=== PATIENT | male | born 1970 | race Caucasian/White ===

== ENCOUNTER → 2016-08-24 | Outpatient (CLI) | payer OTHER ==
--- NOTE | 2016-08-24 13:34 | RAD ---
PROCEDURE MR of the right knee HISTORY Chronic medial pain. No known injury. TECHNIQUE Routine multiplanar sequences are obtained. COMPARISON None FINDINGS Degenerative tear of the medial meniscus. No evidence of lateral meniscal tear. The anterior and posterior cruciate ligaments are intact. Medial collateral ligament is intact. Iliotibial band unremarkable. Fibular collateral ligament, biceps femoris tendon and popliteus tendon are intact. Extensor mechanism is intact. Enthesophytes at the upper pole and to lesser extent lower patella. No evidence of osteochondral loose body. Moderate chondromalacia of the medial joint compartment. Severe chondromalacia at the posterior lateral tibial plateau. No bone lesion or acute fracture. No acute soft tissue injury. No significant Tucker cyst. IMPRESSION 1. Medial meniscal tear. 2. Primary osteoarthritis. Electronically signed by: Shemar Nielsen MD (August 24, 2016 13:33:12)
== END | disposition home or self-care (01) ==
LOC: MRI 10:24
PROVIDERS: ATTEND Physician Assistant Medical
DX: M17.11 Unilateral primary osteoarthritis, right knee (principal)
CPT/HCPCS: 73721

== ENCOUNTER 2016-09-28 05:56 | Day surgery (SDC) | payer OTHER ==
[~2016-09-28] VITALS: Ht 180.3 cm; Wt 142.0 kg
[2016-09-28] MEDS ORDERED: fentaNYL PF VIAL 100 MCG/2 ML VIAL IV PRN (07:00)
[2016-09-28] MEDS ORDERED: ONDANSETRON PF 4 MG/2 ML VIAL. IV PRN (07:00)
[2016-09-28] MEDS ORDERED: MORPHINE SULFATE 2 MG/ML DISP.SYRIN. IV PRN (07:00)
[2016-09-28] MEDS ORDERED: LIDOCAINE 1% 1 ML SYRINGE. ID PRN (07:00)
[2016-09-28] MEDS ORDERED: IV RINGERS,LACTATED 1000ML 1,000 ML IV SCH (07:00)
[2016-09-28] MEDS ORDERED: PROCHLORPERAZINE 10 MG/2 ML VIAL. IV PRN (07:00)
[2016-09-28] MEDS ORDERED: BUPIVACAINE MPF 0.5% 30 ML VIAL. ONE (07:08)
[2016-09-28] MEDS ORDERED: MIDAZOLAM HCL/PF 2 MG/2 ML VIAL. ONE (07:13)
[2016-09-28] MEDS ORDERED: fentaNYL PF VIAL 100 MCG/2 ML VIAL ONE (07:13)
[2016-09-28] MEDS ORDERED: LIDOCAINE 2% PF Vial for OR 5 ML VIAL. ONE (07:14)
[2016-09-28] MEDS ORDERED: PROPOFOL 20 ML IV ONE (07:14)
[2016-09-28] MEDS ORDERED: ONDANSETRON PF 4 MG/2 ML VIAL. ONE (07:14)
[2016-09-28] MEDS ORDERED: DEXAMETHASONE SOD PHOS 20 MG/5 ML VIAL. ONE (07:14)
--- NOTE | 2016-09-28 07:27 | DISCH ---
DISCHARGE INSTRUCTIONS Condition on Discharge Condition on Discharge: Stable Activity After Discharge Activity Instructions for Disc: Activity as tolerated Other activity instructions: slow advance of activity as tolerated Weight Bearing Status after Di: Full weight bearing Diet after Discharge Diet after Discharge: Regular Wound Incision Care Wound/Incision Care: Ice to area for comfort, Keep wound elevated, Change dressing Other wound/incision instructi: remove dressing 2 days may then shower Contacting the DR. after DC Call your doctor for: Concerns you may have Follow-Up Follow up with: Kj 10 days LINO MENSAH MD Sep 28, 2016 07:27
[2016-09-28] MEDS ORDERED: HYDR-965 PO (07:30)
[2016-09-28] MEDS: fentaNYL PF VIAL 100 MCG/2 ML VIAL IV PRN ×2 (08:47→08:54)
[2016-09-28] MEDS ORDERED: HYDROcodone/APAP 7.5/325MG 1 TAB TABLET PO PRN (09:00)
[2016-09-28] MEDS: HYDROmorphone 2 MG/ML VIAL IV PRN ×2 (09:03→09:13)
[2016-09-28 09:33] VITALS: BP 133/69
--- NOTE | 2016-09-28 10:17 | OP ---
DATE OF SURGERY: 09/28/2016 PREOPERATIVE DIAGNOSIS: Medial meniscus tear, right knee. POSTOPERATIVE DIAGNOSIS: Medial meniscus tear, right knee. PROCEDURE: Right knee arthroscopy, partial medial meniscectomy. SURGEON: Geoff Underwood M.D. ANESTHESIA: General. ESTIMATED BLOOD LOSS: 5 mL. COMPLICATIONS: None. OPERATIVE INDICATIONS: The patient is a 46-year-old male with pain, swelling and mechanical symptoms in the posterior medial joint line, sharp pain with twisting, pivoting. MRI confirmed clinical suspicion of the medial meniscus tear. I had gone over with him the risks, benefits, postoperative course of typical operative treatment the fact that I cannot undo any degenerative changes effectively in the knee and possibility of continued pain, nerve or blood vessel damage, medical or other anesthetic complications among others. All his questions were answered. Consent was obtained and he agrees to proceed with operative evaluation and treatment. DESCRIPTION OF PROCEDURE: The patient was identified, procedure verified, patient placed in the supine position on operating table and a thigh tourniquet was placed and the right lower extremity prepped and draped in standard sterile fashion. After timeout was performed, the patient and procedure identified and verified, the leg was exsanguinated by Esmarch bandage. Tourniquet inflated to 350 mmHg. Lateral portal was established, medial portal established using spinal needle localization and the knee joint was systematically examined. He was found to have a displaceable tear of posterior horn of medial meniscus which was trimmed back to stable tissue using arthroscopic punch and shaver. He also had some chondromalacia of the medial femoral condyle which was trimmed back to stable tissue gently using arthroscopic shaver. ACL lateral meniscus were probed and found to be intact. No loose bodies were noted in the gutters. He only had slight chondromalacia of the central facet of the patella, a trochlear groove was in excellent condition. The knee was then drained of arthroscopic fluid. Portals closed with nylon suture. Fat pad ____ knee joint were infused with 20 mL of 0.5% plain Marcaine. Sterile dressings were applied. Toes were noted to be warm and pink following deflation of the tourniquet. He was returned to recovery room in stable condition having tolerated the procedure well. GEOFF UNDERWOOD MD DR: ASHLEY/frank JOB#: [id number] / [id number]
--- NOTE | 2016-09-28 12:40 | PDOC ---
BRIEF OPERATIVE NOTE Date: Sep 28, 2016 Pre-Op Diagnosis right medial meniscus tear Post-Op Diagnosis same Procedure Performed right knee arthroscopy, partial medial menisectomy Surgeon Kj Anesthesia Type: General Blood Loss 5cc Findings above Complications none LINO MENSAH MD Sep 28, 2016 12:40
== END 2016-09-28 09:55 | disposition home or self-care (01) ==
LOC: SURG 05:56
PROVIDERS: ATTEND Orthopaedic Surgery
DX: S83.241A Other tear of medial meniscus, current injury, right knee, initial encounter (principal); X58.XXXA Exposure to other specified factors, initial encounter; Y93.89 Activity, other specified; Y92.89 Other specified places as the place of occurrence of the external cause; Y99.8 Other external cause status; Z87.39 Personal history of other diseases of the musculoskeletal system and connective tissue
CPT/HCPCS: 29881; J0690; J1100; J1170; J2250; J2405; J2704; J3010; J3490